=== PATIENT | female | born 1955 | race Caucasian/White ===

== ENCOUNTER 2021-01-14 12:48 | Emergency (ER) | payer MEDICARE, MEDICAID, SELFPAY ==
[2021-01-14 13:00] VITALS: BP 154/70; PULSE 72; RESP 16; TEMP 36.6; O2SAT 98
[2021-01-14 13:19] VITALS: BP 154/70; PULSE 72; RESP 16; TEMP 36.6; O2SAT 98
--- NOTE | 2021-01-14 13:19 | ED.FEMALEGU ---
HPI - Female Genitourinary General Chief complaint: Back Pain/Injury Stated complaint: Back pain, not eating and drinking a lot Time Seen by Provider: 01/14/21 13:19 Source: patient Mode of arrival: ambulatory Limitations: no limitations History of Present Illness HPI Narrative: Ashley Villatoro is a 65 yo female with a PMH of chronic back pain, high cholesterol, diabetes, hypothyroid, GERD, who comes to [facility] with pain in her left buttock area and is concerned that she may have a UTI. She states her urine is dark and that the symptoms that she had last time she had infection Other is in hospice at her house 9 of metastatic cancer and she and her daughter are the primary caregivers there are none of the people have pharyngitis living in the household and she states she is a very stressful situation. She is tearful when she discusses with going on with her father and her brother and how this situation is a repeat of what happened with her mother more than 10 years ago Related Data Home Medications Medication Instructions Recorded Confirmed atorvastatin 20 mg PO DAILY 01/14/21 01/14/21 ergocalciferol (vitamin D2) 1,250 mcg PO WEEKLY 01/14/21 01/14/21 [Vitamin D2] fluticasone furoate-vilanterol 1 inh INHALATION DAILY 01/14/21 01/14/21 [Breo Ellipta] furosemide [Lasix] 20 mg PO DAILY 01/14/21 01/14/21 gabapentin 900 mg PO TID 01/14/21 01/14/21 glimepiride 4 mg PO BID 01/14/21 01/14/21 levothyroxine 125 mcg PO DAILY 01/14/21 01/14/21 methocarbamol 500 mg PO QID 01/14/21 01/14/21 montelukast [Singulair] 10 mg PO DAILY 01/14/21 01/14/21 omeprazole 20 mg PO DAILY 01/14/21 01/14/21 pioglitazone 45 mg PO DAILY 01/14/21 01/14/21 probenecid 500 mg PO BID 01/14/21 01/14/21 tramadol 50 mg PO Q6H PRN 01/14/21 01/14/21 Allergies Allergy/AdvReac Type Severity Reaction Status Date / Time No Known Allergies Allergy Verified 01/14/21 13:14 Review of Systems Review of Systems: Narrative: CONSTITUTIONAL: Denies fever, chills, sweats. EYES: Denies visual changes, redness, discharge. ENT: Denies rhinorrhea, congestion, sore throat, otalgia. CARDIOVASCULAR: Denies chest pain, palpitations, edema. RESPIRATORY: Denies dyspnea, wheezing, cough GASTROINTESTINAL: Denies abdominal pain, nausea, vomiting, diarrhea. GENITOURINARY: Denies dysuria, hematuria, abnormal discharge SKIN: Denies rash or itching. NEUROLOGIC: Denies numbness, or focal weakness. PSYCHIATRIC: Denies anxiety or depression. Has dark urine and states that is feeling fatigued, she does not feel like eating or drinking much and states that she is somewhat depressed with her dying father in the household PMFSH Past Medical History Medical History Chronic back pain Depression Diabetes Hypertension Family History Family History Other Heart disease Hypertension Social History Social History Smoking status: Never smoker Alcohol intake: never Comments At time of signature, I agree with nursing past medical, surgical, social and family history. There is no relevant family history pertinent to the presenting complaint. Exam Narrative: Exam Narrative: GENERAL: This is a overly-nourished, well-developed patient, in mild distress. Is depressed, rocking in the chair HEAD: normocephalic, atraumatic. EYES:Sclera clear/white. Vision is grossly intact. EARS: External ears normal, a Hearing grossly intact. NOSE: External nose normal without nasal discharge, nares without redness, no rhinorrhea. THROAT: Mucous membranes moist, NECK: Neck supple, CARDIOVASCULAR: Regular rate and rhythm without murmurs, gallops, or rubs. RESPIRATORY: Clear to auscultation. Breath sounds equal bilaterally. No wheezes, rales, or rhonchi. GASTROINTESTINAL: Abdomen soft, non-tender, SKIN: warm, intact with no suspicious lesio
== END 2021-01-14 13:53 | disposition home or self-care (01) ==
PROVIDERS: Emergency Provider Nurse Practitioner
DX: R30.0 Dysuria (principal); E11.9 Type 2 diabetes mellitus without complications; I10 Essential (primary) hypertension; M54.9 Dorsalgia, unspecified; G89.29 Other chronic pain; C79.9 Secondary malignant neoplasm of unspecified site
CPT/HCPCS: 81003; 87086; 87147; 87186; 99213; G0463